=== PATIENT | female | born 1965 | race Caucasian/White ===

== ENCOUNTER 2020-04-20 07:51 | Emergency (ER) | payer OTHER ==
[~2020-04-20] VITALS: Ht 162.6 cm; Wt 49.9 kg
[2020-04-20] MEDS ORDERED: DISKETS40 MG PO (07:58)
== END 2020-04-20 11:26 | disposition home or self-care (01) ==
LOC: ED 07:51
DX: R10.32 Left lower quadrant pain (principal); F17.200 Nicotine dependence, unspecified, uncomplicated; Z88.1 Allergy status to other antibiotic agents; Z79.899 Other long term (current) drug therapy
CPT/HCPCS: 74176; 80053; 81001; 83690; 84703; 85025; 96361; 96374; 96375; 99284-25; J1170; J1885; J2405; J7030